=== PATIENT | female | born 1995 | race African-American/Black ===

== ENCOUNTER 2024-12-15 21:28 | Emergency (ER) | payer MEDICAID ==
[~2024-12-15] VITALS: Ht 175.3 cm; Wt 80.0 kg
[2024-12-15 21:32] VITALS: TEMP 36.6; O2SAT 100
[2024-12-15 23:49] LABS: BASOPHILS % 0.6 % (0.0-2.0); EOSINOPHILS % 0.6 % (0.0-5.0); HEMATOCRIT. 43.1 % (36.0-48.0); HEMOGLOBIN. 13.8 g/dL (12.0-16.0); LYMPHOCYTES % 20.2 % (20.0-50.0); MEAN CORPUSCULAR HEMOGLOBIN 26.5 pg (28.0-32.0); MEAN CORPUSCULAR VOLUME 82.9 fL (81.0-99.0); MEAN PLATELET VOLUME 8.2 fl (7.4-10.4); MONOCYTES % 6.4 % (2.0-8.0); NEUTROPHILS % 72.2 % (40.0-76.0); PLATELET 328 x1000/uL (130-400); RED CELL DISTRIBUTION WIDTH 16.3 % (11.6-14.6); WHITE BLOOD COUNT 13.2 x1000/uL (4.5-11.0)
[2024-12-15] MEDS: SODIUM CHLORIDE 0.9% 1,000 ML IV ONE (23:52)
[2024-12-15 23:54] LABS: CARBON DIOXIDE 26 mEq/L (21-32); CHLORIDE 99 mEq/L (98-107); POTASSIUM 3.3 mEq/L (3.5-5.1); SODIUM 138 mEq/L (136-145)
[2024-12-15 23:55] LABS: CALCIUM 10.8 mg/dL (8.7-10.4)
[2024-12-15 23:59] LABS: CREATININE 0.7 mg/dL (0.6-1.0)
[2024-12-16] LABS: GLUCOSE 118 mg/dL (70-105); UREA NITROGEN BLOOD 8 mg/dL (9-23)
[2024-12-16 00:01] LABS: ALANINE AMINOTRANSFERASE 10 IU/L (10-49); ALBUMIN 5.9 g/dL (3.2-4.8); ASPARTATE AMINOTRANSFERASE 10 IU/L (<34)
[2024-12-16 00:02] LABS: BILIRUBIN DIRECT 0.2 mg/dL (<=3.0); BILIRUBIN TOTAL 0.7 mg/dL (0.1-1.0); PROTEIN TOTAL 9.5 g/dL (6.0-8.3)
[2024-12-16 00:23] LABS: B-HCG QUANTITATIVE 35845 mIU/mL (<6)
[2024-12-16] MEDS: ONDANSETRON HCL 4MG/2ML INJ IV STA (00:37)
[2024-12-16] MEDS ORDERED: ONDA4TAB50 MT (04:39)
[2024-12-16 05:48] VITALS: BP 101/64; PULSE 69; RESP 13; O2SAT 97
== END 2024-12-16 05:52 | disposition home or self-care (01) ==
LOC: ER 21:28
DX: O21.0 Mild hyperemesis gravidarum (principal); Z3A.01 Less than 8 weeks gestation of pregnancy
CPT/HCPCS: 99285; 80076; 80048; 84702; 85025; 36415; 96374; 76801; 96361; J7030; J2405

== ENCOUNTER 2024-12-17 18:24 | Emergency (ER) | payer MEDICAID ==
[~2024-12-17] VITALS: Ht 167.6 cm; Wt 73.0 kg
[~2024-12-17 18:24] MED LIST: ONDA4TAB50 MT
[2024-12-17 18:27] VITALS: BP 112/66; PULSE 81; RESP 16; TEMP 36.8; O2SAT 99
[2024-12-17] MEDS: ONDANSETRON HCL 4MG/2ML INJ IV ONE (20:56)
[2024-12-17] MEDS: FAMOTIDINE 20MG/2ML VIAL IV ONE (20:56)
[2024-12-17] MEDS: SODIUM CHLORIDE 0.9% 1,000 ML IV ONE (20:59)
[2024-12-17 21:40] LABS: BASOPHILS % 0.4 % (0.0-2.0); EOSINOPHILS % 0.4 % (0.0-5.0); HEMOGLOBIN. 12.4 g/dL (12.0-16.0); LYMPHOCYTES % 21.3 % (20.0-50.0); MEAN CORPUSCULAR HEMOGLOBIN 26.6 pg (28.0-32.0); MEAN CORPUSCULAR HGB CONC 31.8 g/dL (31.0-37.0); MEAN CORPUSCULAR VOLUME 83.5 fL (81.0-99.0); MEAN PLATELET VOLUME 8.4 fl (7.4-10.4); MONOCYTES % 7.4 % (2.0-8.0); NEUTROPHILS % 70.5 % (40.0-76.0); PLATELET 279 x1000/uL (130-400); RED BLOOD CELL COUNT 4.66 mill/uL (4.2-5.4); RED CELL DISTRIBUTION WIDTH 16.3 % (11.6-14.6); WHITE BLOOD COUNT 11.8 x1000/uL (4.5-11.0)
[2024-12-17 21:49] LABS: CALCIUM 9.5 mg/dL (8.7-10.4); CARBON DIOXIDE 22 mEq/L (21-32); CHLORIDE 101 mEq/L (98-107); POTASSIUM 3.5 mEq/L (3.5-5.1); SODIUM 135 mEq/L (136-145)
[2024-12-17 21:52] LABS: CREATININE 0.5 mg/dL (0.6-1.0); GLUCOSE 97 mg/dL (70-105)
[2024-12-17 21:53] LABS: ETHANOL BLOOD < 10 mg/dL (<10); UREA NITROGEN BLOOD 6 mg/dL (9-23)
[2024-12-17 21:54] LABS: ALANINE AMINOTRANSFERASE 7 IU/L (10-49); ALBUMIN 4.9 g/dL (3.2-4.8); ASPARTATE AMINOTRANSFERASE 11 IU/L (<34)
[2024-12-17 21:55] LABS: BILIRUBIN DIRECT 0.2 mg/dL (<=3.0); BILIRUBIN TOTAL 0.7 mg/dL (0.1-1.0); PROTEIN TOTAL 7.9 g/dL (6.0-8.3)
[2024-12-17 21:57] LABS: BETA HYDROXYBUTYRATE 0.6 mMol/L (0.0-0.3)
[2024-12-17 22:11] LABS: B-HCG QUANTITATIVE 34356 mIU/mL (<6)
== END 2024-12-17 23:32 | disposition home or self-care (01) ==
LOC: ER 18:24
DX: O20.9 Hemorrhage in early pregnancy, unspecified (principal); O21.9 Vomiting of pregnancy, unspecified; Z3A.01 Less than 8 weeks gestation of pregnancy; Z79.899 Other long term (current) drug therapy
CPT/HCPCS: 80076; 80048; 82010; 80320; 84702; 83690; 85025; 36415; 76801; 96361; 96374; 96375; 99285; J3490; J2405; J7030; G0480

== ENCOUNTER 2024-12-19 12:32 | Inpatient (IN) | payer MEDICAID ==
[~2024-12-19] VITALS: Ht 167.6 cm; Wt 79.8 kg
[2024-12-19 13:42] LABS: BASOPHILS % 0.4 % (0.0-2.0); EOSINOPHILS % 0.5 % (0.0-5.0); HEMATOCRIT. 37.8 % (36.0-48.0); LYMPHOCYTES % 19.5 % (20.0-50.0); MEAN CORPUSCULAR HEMOGLOBIN 26.5 pg (28.0-32.0); MEAN CORPUSCULAR HGB CONC 31.9 g/dL (31.0-37.0); MEAN CORPUSCULAR VOLUME 83.1 fL (81.0-99.0); MEAN PLATELET VOLUME 8.4 fl (7.4-10.4); NEUTROPHILS % 71.6 % (40.0-76.0); PLATELET 270 x1000/uL (130-400); RED BLOOD CELL COUNT 4.54 mill/uL (4.2-5.4); RED CELL DISTRIBUTION WIDTH 15.9 % (11.6-14.6); WHITE BLOOD COUNT 12.2 x1000/uL (4.5-11.0)
[2024-12-19 13:52] LABS: INR 1.2; PROTHROMBIN TIME 12.8 sec (9.6-11.0)
[2024-12-19 13:56] LABS: CARBON DIOXIDE 25 mEq/L (21-32); CHLORIDE 100 mEq/L (98-107); SODIUM 137 mEq/L (136-145)
[2024-12-19 13:57] LABS: CALCIUM 9.7 mg/dL (8.7-10.4)
[2024-12-19 14:01] LABS: CREATININE 0.6 mg/dL (0.6-1.0)
[2024-12-19 14:02] LABS: GLUCOSE 103 mg/dL (70-105); UREA NITROGEN BLOOD 7 mg/dL (9-23)
[2024-12-19] MEDS: SODIUM CHLORIDE 0.9% 1,000 ML IV ONE (14:03)
[2024-12-19] MEDS: ONDANSETRON HCL 4MG/2ML INJ IV STA (14:10)
[2024-12-19 14:19] LABS: B-HCG QUANTITATIVE 47284 mIU/mL (<6); TROPONIN I HIGH SENSITIVITY < 4 ng/L (3.0-34)
[2024-12-19] MEDS: POTASSIUM CHLORIDE 20MEQ/PACKET PO ONE (15:20)
[2024-12-19] MEDS: METOCLOPRAMIDE HCL 10MG/2ML VIAL IV ONE (16:23)
[2024-12-19] MEDS: ONDANSETRON HCL 4MG/2ML INJ IV ONE (16:59)
[2024-12-19 20:00] VITALS: BP 118/71; PULSE 69; RESP 18; TEMP 36.7; O2SAT 100
[2024-12-19] MEDS: DEXT 5%/0.45% NACL KCL 20MEQ/L 1,000 ML IV SCH (21:18)
[2024-12-19 21:19] VITALS: BP 118/71; PULSE 69; RESP 18; TEMP 36.8
[2024-12-19 21:30] LABS: CLARITY URINE CLOUDY (CLEAR); COLOR URINE YELLOW (YELLOW); GLUCOSE URINE NEGATIVE (NEGATIVE); KETONES URINE 4+ (NEGATIVE); LEUKOCYTE ESTERASE URINE 2+ (NEGATIVE); NITRITE URINE POSITIVE (NEGATIVE); OCCULT BLOOD URINE NEGATIVE (NEGATIVE); PH URINE 6.5 (4.5-8.0); PROTEIN URINE TRACE (NEGATIVE); SPECIFIC GRAVITY URINE 1.024 (1.005-1.030)
[2024-12-19 22:08] LABS: BACTERIA URINE 2+; SQUAMOUS EPITHELIAL CELL URINE 3+ /lpf (RARE/1+)
[2024-12-19 22:10] LABS: AMORPHOUS SEDIMENT URINE 2+ /lpf; RBC URINE 0-2 /hpf (0-2)
[2024-12-20] MEDS: ONDANSETRON HCL 4MG/2ML INJ IV PRN (01:57)
[2024-12-20] MEDS: DEXT 5%/0.45% NACL KCL 20MEQ/L 1,000 ML IV SCH (05:22)
[2024-12-20 08:00] VITALS: BP 111/55; PULSE 76; RESP 18; TEMP 36.3; O2SAT 100
[2024-12-20 09:10] LABS: BASOPHILS % 0.4 % (0.0-2.0); EOSINOPHILS % 1.2 % (0.0-5.0); HEMATOCRIT. 35.5 % (36.0-48.0); HEMOGLOBIN. 11.5 g/dL (12.0-16.0); LYMPHOCYTES % 25.9 % (20.0-50.0); MEAN CORPUSCULAR HGB CONC 32.4 g/dL (31.0-37.0); MEAN CORPUSCULAR VOLUME 83.5 fL (81.0-99.0); MEAN PLATELET VOLUME 8.6 fl (7.4-10.4); MONOCYTES % 10.2 % (2.0-8.0); NEUTROPHILS % 62.3 % (40.0-76.0); PLATELET 263 x1000/uL (130-400); RED BLOOD CELL COUNT 4.25 mill/uL (4.2-5.4); RED CELL DISTRIBUTION WIDTH 16.1 % (11.6-14.6)
[2024-12-20 09:24] LABS: CHLORIDE 102 mEq/L (98-107); POTASSIUM 3.7 mEq/L (3.5-5.1); SODIUM 137 mEq/L (136-145)
[2024-12-20 09:25] LABS: CARBON DIOXIDE 26 mEq/L (21-32)
[2024-12-20 09:26] LABS: CALCIUM 9.2 mg/dL (8.7-10.4)
[2024-12-20 09:30] LABS: CREATININE 0.6 mg/dL (0.6-1.0)
[2024-12-20 09:31] LABS: GLUCOSE 99 mg/dL (70-105); UREA NITROGEN BLOOD < 5 mg/dL (9-23)
[2024-12-20 09:32] LABS: ALANINE AMINOTRANSFERASE < 7 IU/L (10-49); ALBUMIN 4.1 g/dL (3.2-4.8)
[2024-12-20 09:33] LABS: BILIRUBIN DIRECT 0.2 mg/dL (<=3.0); BILIRUBIN TOTAL 0.6 mg/dL (0.1-1.0); PROTEIN TOTAL 6.5 g/dL (6.0-8.3)
[2024-12-20 09:34] LABS: ASPARTATE AMINOTRANSFERASE < 8 IU/L (<34)
[2024-12-20 12:00] VITALS: BP 118/67; PULSE 71; RESP 20; TEMP 36.4; O2SAT 99
[2024-12-20 16:00] VITALS: BP 116/74; PULSE 76; RESP 20; TEMP 36.4; O2SAT 100
[2024-12-20] MEDS: CEFTRIAXONE 1GM/50ML 50 ML IV SCH (18:05)
[2024-12-20] MEDS: ACETAMINOPHEN 325MG TABLET PO PRN (18:11)
[2024-12-20 20:00] VITALS: BP 131/66; PULSE 80; RESP 18; TEMP 35.8; O2SAT 95
[2024-12-21] VITALS: BP 103/49; PULSE 69; RESP 18; TEMP 35.8; O2SAT 99
[2024-12-21 04:00] VITALS: BP 100/57; PULSE 68; RESP 18; TEMP 36.5; O2SAT 95
[2024-12-21 08:00] VITALS: BP 112/61; PULSE 75; RESP 20; TEMP 36.7; O2SAT 100
[2024-12-21 12:00] VITALS: BP 102/49; PULSE 73; RESP 20; TEMP 36.2; O2SAT 100
[2024-12-21] MEDS ORDERED: CEPH250T MT (13:53)
[2024-12-21 14:46] VITALS: BP 20/69; PULSE 73; TEMP 97.2; O2SAT 100
== END 2024-12-21 15:00 | disposition home or self-care (01) | DRG 566 ==
LOC: ER 12:32 → EDBEDREQ 16:58 → EDBEDREQTM 16:58 → ENRESERV 18:08 → 6EST 18:30
PROVIDERS: ADMIT Internal Medicine; ATTEND Internal Medicine
DX: O21.1 Hyperemesis gravidarum with metabolic disturbance (principal); O23.41 Unspecified infection of urinary tract in pregnancy, first trimester; O99.011 Anemia complicating pregnancy, first trimester; Z3A.01 Less than 8 weeks gestation of pregnancy; F12.90 Cannabis use, unspecified, uncomplicated; F10.90 Alcohol use, unspecified, uncomplicated; O99.314 Alcohol use complicating childbirth; O99.324 Drug use complicating childbirth; Z88.0 Allergy status to penicillin
CPT/HCPCS: 36415; 76801; 80048; 80076; 81003; 84484; 84702; 85025; 99285; A4606; J0696; J2405; J2765; J7030